=== PATIENT | male | born 1975 | race Caucasian/White ===

== ENCOUNTER 2017-02-27 09:09 | Inpatient (IN) | payer MEDICAID, OTHER ==
[~2017-02-27] VITALS: Ht 170.2 cm; Wt 79.4 kg
[~2017-02-27 09:09] MED LIST: BUSP10TA23 PO; GABA-533 PO; MIRT30 PO
[2017-02-27] MEDS ORDERED: ESCI20TA PO (09:13)
[2017-02-27 09:35] LABS: BASOPHILS % (AUTO) 0.2 % (0.0-2.0); EOSINOPHILS % (AUTO) 3.9 % (1.0-6.0); HEMOGLOBIN 15.1 g/dL (13.5-17.5); LYMPHOCYTES # (AUTO) 1.1 K/uL (1.0-4.8); LYMPHOCYTES % (AUTO) 16.2 % (22.0-44.0); MEAN CORPUSCULAR HEMOGLOBIN 30.4 pg (26.0-34.0); MEAN CORPUSCULAR HGB CONC 32.8 G/dL (31.0-37.0); MEAN CORPUSCULAR VOLUME 92 fL (80-100); MONOCYTES # (AUTO) 0.8 K/uL (0.1-1.0); MONOCYTES % (AUTO) 11.6 % (2.0-9.0); NEUTROPHILS # (AUTO) 4.4 K/uL (1.8-7.7); NEUTROPHILS % (AUTO) 68.1 % (40.0-70.0); PLATELET COUNT (AUTO) 281 K/uL (150-450); RED BLOOD CELL COUNT(AUTO) 4.98 MIL/uL (4.50-5.90); RED CELL DISTRIBUTION WIDTH 15.2 % (11.5-14.5); WHITE BLOOD COUNT (AUTO) 6.5 K/uL (4.5-11.0)
[2017-02-27 10:04] LABS: ANION GAP 11 mmol/L (8-16); CALCIUM, TOTAL 8.9 mg/dL (8.8-10.5); CARBON DIOXIDE 29 mmol/L (22-29); CHLORIDE 102 mmol/L (98-107); CREATININE 1.17 mg/dL (0.60-1.30); GLOMERULAR FILTR. RATE CALC > 60 mL/min (>60); POTASSIUM 4.1 mmol/L (3.5-5.1); SODIUM SERUM 142 mmol/L (136-145); UREA NITROGEN, BLOOD 11 mg/dL (7-18)
[2017-02-27 10:10] LABS: ALANINE AMINOTRANSFERASE 55 U/L (12-78); ALBUMIN 4.1 g/dL (3.4-5.0); ASPARTATE AMINOTRANSFERASE 37 U/L (15-37); BILIRUBIN,TOTAL 0.5 mg/dL (0.1-1.0); TOTAL PROTEIN, SERUM 7.8 g/dL (6.4-8.2)
[2017-02-27] MEDS: LORazepam 2 MG TABLET PO PRN ×2 (10:26→22:27)
[2017-02-27 12:00] VITALS: BP 144/83
[2017-02-27] MEDS: GABAPENTIN 400 MG CAPSULE PO SCH ×2 (13:07→17:34)
[2017-02-27 16:00] VITALS: BP 139/88
[2017-02-28] MEDS: LORazepam 2 MG TABLET PO PRN ×2 (06:21→11:47)
[2017-02-28 08:46] VITALS: BP 122/69
[2017-02-28] MEDS: GABAPENTIN 400 MG CAPSULE PO SCH ×3 (09:01→17:15)
[2017-02-28] MEDS: ESCITALOPRAM OXALATE 20 MG TABLET PO SCH (09:02)
[2017-02-28] MEDS: HALOPERIDOL 5 MG TABLET PO PRN (11:47)
[2017-02-28 16:14] VITALS: BP 133/87
[2017-03-01 06:10] VITALS: BP 144/85
[2017-03-01 08:16] VITALS: BP 139/80
[2017-03-01] MEDS: GABAPENTIN 400 MG CAPSULE PO SCH ×3 (09:49→16:36)
[2017-03-01] MEDS: ESCITALOPRAM OXALATE 20 MG TABLET PO SCH (09:49)
[2017-03-01 16:29] VITALS: BP 135/81
[2017-03-02 06:56] VITALS: BP 138/85
[2017-03-02] MEDS ORDERED: IBUPROFEN 600 MG TABLET PO PRN (08:00)
[2017-03-02] MEDS ORDERED: ACETAMINOPHEN 325 MG TABLET PO PRN (08:00)
[2017-03-02 08:11] VITALS: BP 150/98
[2017-03-02] MEDS: ESCITALOPRAM OXALATE 20 MG TABLET PO SCH (08:13)
[2017-03-02] MEDS: GABAPENTIN 400 MG CAPSULE PO SCH ×3 (08:13→16:00)
[2017-03-02 09:54] VITALS: BP 118/72
[2017-03-02] MEDS: LORazepam 2 MG TABLET PO PRN ×3 (10:51→20:08)
[2017-03-02 16:34] VITALS: BP 141/84
[2017-03-03 05:18] VITALS: BP 136/90
[2017-03-03] MEDS: LORazepam 2 MG TABLET PO PRN ×4 (05:18→18:28)
[2017-03-03 08:18] VITALS: BP 126/64
[2017-03-03] MEDS: ESCITALOPRAM OXALATE 20 MG TABLET PO SCH (09:18)
[2017-03-03] MEDS: GABAPENTIN 400 MG CAPSULE PO SCH ×3 (09:18→16:08)
[2017-03-03 16:30] VITALS: BP 144/88
[2017-03-03] MEDS: HALOPERIDOL 5 MG TABLET PO PRN (20:15)
[2017-03-03] MEDS: ZOLPIDEM TARTRATE 10 MG TABLET PO PRN (20:15)
[2017-03-04 07:02] VITALS: BP 149/91
[2017-03-04 08:06] VITALS: BP 135/76
[2017-03-04] MEDS: GABAPENTIN 400 MG CAPSULE PO SCH ×3 (08:50→16:20)
[2017-03-04] MEDS: ESCITALOPRAM OXALATE 20 MG TABLET PO SCH (08:51)
[2017-03-04] MEDS: LORazepam 2 MG TABLET PO PRN ×2 (11:49→17:25)
[2017-03-04 16:00] VITALS: BP 130/79
[2017-03-04] MEDS: NICOTINE POLACRILEX 4 MG LOZENGE PO PRN ×2 (18:24→20:34)
[2017-03-04] MEDS: ZOLPIDEM TARTRATE 10 MG TABLET PO PRN (20:33)
[2017-03-04] MEDS: HALOPERIDOL 5 MG TABLET PO PRN (20:33)
[2017-03-05 07:06] VITALS: BP 123/72
[2017-03-05] MEDS: LORazepam 2 MG TABLET PO PRN ×2 (07:26→16:10)
[2017-03-05 09:13] VITALS: BP 122/67
[2017-03-05] MEDS: ESCITALOPRAM OXALATE 20 MG TABLET PO SCH (09:20)
[2017-03-05] MEDS: GABAPENTIN 400 MG CAPSULE PO SCH ×3 (09:20→16:09)
[2017-03-05] MEDS: NICOTINE POLACRILEX 4 MG LOZENGE PO PRN ×3 (11:22→20:34)
[2017-03-05 16:00] VITALS: BP 130/73
[2017-03-05] MEDS: ZOLPIDEM TARTRATE 10 MG TABLET PO PRN (20:32)
[2017-03-06 00:15] VITALS: BP 122/70
[2017-03-06 08:25] VITALS: BP 133/83
[2017-03-06] MEDS: GABAPENTIN 400 MG CAPSULE PO SCH ×3 (08:57→16:19)
[2017-03-06] MEDS: LORazepam 2 MG TABLET PO PRN ×2 (08:57→19:33)
[2017-03-06] MEDS: ESCITALOPRAM OXALATE 20 MG TABLET PO SCH (08:58)
[2017-03-06 16:13] VITALS: BP_SYST 134; BP_DIAS 8; BP_DIAS 89
[2017-03-06] MEDS: NICOTINE POLACRILEX 4 MG LOZENGE PO PRN ×2 (16:59→20:58)
[2017-03-06] MEDS: ZOLPIDEM TARTRATE 10 MG TABLET PO PRN (20:57)
[2017-03-07 00:07] VITALS: BP 139/96
[2017-03-07] MEDS: HALOPERIDOL 5 MG TABLET PO PRN (00:07)
[2017-03-07] MEDS: GABAPENTIN 400 MG CAPSULE PO SCH ×2 (08:29→12:42)
[2017-03-07] MEDS: ESCITALOPRAM OXALATE 20 MG TABLET PO SCH (08:29)
[2017-03-07 08:42] VITALS: BP 102/51
[2017-03-07 08:47] VITALS: BP 142/84
[2017-03-07] MEDS: LORazepam 2 MG TABLET PO PRN (12:08)
== END 2017-03-07 16:07 | disposition home or self-care (01) | DRG 751 ==
LOC: EMS 09:10 → B3A 11:17 → B2S 03-04 10:57
DX: F33.2 Major depressive disorder, recurrent severe without psychotic features (principal); R45.851 Suicidal ideations; I10 Essential (primary) hypertension; F41.1 Generalized anxiety disorder; F17.210 Nicotine dependence, cigarettes, uncomplicated; F12.90 Cannabis use, unspecified, uncomplicated; R03.0 Elevated blood-pressure reading, without diagnosis of hypertension; K21.9 Gastro-esophageal reflux disease without esophagitis; K59.00 Constipation, unspecified; G47.00 Insomnia, unspecified; Z71.51 Drug abuse counseling and surveillance of drug abuser; Z71.6 Tobacco abuse counseling; Z91.5 Personal history of self-harm; Z79.899 Other long term (current) drug therapy
CPT/HCPCS: 99285; G0480

== ENCOUNTER 2017-05-15 18:22 | Inpatient (IN) | payer MEDICARE, MEDICAID ==
[~2017-05-15] VITALS: Ht 167.6 cm; Wt 77.2 kg
[~2017-05-15 18:22] MED LIST changes: -BUSP10TA23 PO; +ESCI20TA PO; -MIRT30 PO
[2017-05-15 19:17] LABS: BASOPHILS % (AUTO) 0.2 % (0.0-2.0); EOSINOPHILS % (AUTO) 3.8 % (1.0-6.0); HEMATOCRIT 43.5 % (41-53); HEMOGLOBIN 14.7 g/dL (13.5-17.5); LYMPHOCYTES # (AUTO) 1.2 K/uL (1.0-4.8); LYMPHOCYTES % (AUTO) 17.4 % (22.0-44.0); MEAN CORPUSCULAR HEMOGLOBIN 31.3 pg (26.0-34.0); MEAN CORPUSCULAR HGB CONC 33.8 G/dL (31.0-37.0); MEAN CORPUSCULAR VOLUME 93 fL (80-100); MONOCYTES # (AUTO) 0.8 K/uL (0.1-1.0); MONOCYTES % (AUTO) 10.8 % (2.0-9.0); NEUTROPHILS # (AUTO) 4.8 K/uL (1.8-7.7); NEUTROPHILS % (AUTO) 67.8 % (40.0-70.0); PLATELET COUNT (AUTO) 233 K/uL (150-450); RED CELL DISTRIBUTION WIDTH 14.1 % (11.5-14.5); WHITE BLOOD COUNT (AUTO) 7.1 K/uL (4.5-11.0)
[2017-05-15 19:55] LABS: ANION GAP 6 mmol/L (8-16); CALCIUM, TOTAL 8.9 mg/dL (8.8-10.5); CARBON DIOXIDE 29 mmol/L (22-29); CHLORIDE 105 mmol/L (98-107); CREATININE 1.22 mg/dL (0.60-1.30); GLOMERULAR FILTR. RATE CALC > 60 mL/min (>60); SODIUM SERUM 140 mmol/L (136-145); UREA NITROGEN, BLOOD 14 mg/dL (7-18)
[2017-05-15 20:01] LABS: ALANINE AMINOTRANSFERASE 38 U/L (12-78); ALBUMIN 3.8 g/dL (3.4-5.0); ASPARTATE AMINOTRANSFERASE 28 U/L (15-37); BILIRUBIN,TOTAL 0.4 mg/dL (0.1-1.0); TOTAL PROTEIN, SERUM 6.8 g/dL (6.4-8.2)
[2017-05-16 00:15] VITALS: BP 147/100
[2017-05-16 07:18] LABS: CHOL/HDL RATIO 4.3 (4.2-7.3)
[2017-05-16] MEDS: HALOPERIDOL 5 MG TABLET PO PRN (08:00)
[2017-05-16] MEDS: LORazepam 2 MG TABLET PO PRN (08:00)
[2017-05-16] MEDS ORDERED: BENZOCAINE/MENTHOL LOZENGE [8 LOZENGES/PACKET] MM PRN (10:30)
[2017-05-16] MEDS ORDERED: IBUPROFEN 600 MG TABLET PO PRN (10:30)
[2017-05-16] MEDS ORDERED: CloNIDine HCL 0.1 MG TABLET PO PRN (10:30)
[2017-05-16] MEDS ORDERED: BACITRACIN 28.4 GM OINTMENT TP PRN (10:30)
[2017-05-16] MEDS ORDERED: ONDANSETRON HCL 4 MG TABLET PO PRN (10:30)
[2017-05-16] MEDS ORDERED: ACETAMINOPHEN 325 MG TABLET PO PRN (10:30)
[2017-05-16] MEDS ORDERED: PETROLATUM,WHITE 71 GM JELLY TP PRN (10:30)
[2017-05-16] MEDS ORDERED: MAGNESIUM HYDROXIDE SUSPENSION 30 ML UDCUP PO PRN (10:30)
[2017-05-16] MEDS ORDERED: ALBUTEROL SULFATE HFA 90 MCG/PUFF 8 GM INHALER IH PRN (10:30)
[2017-05-16] MEDS ORDERED: LOPERAMIDE HCL 2 MG CAPSULE PO PRN (10:30)
[2017-05-16] MEDS ORDERED: MAG HYDROX/AL HYDROX/SIMETH ES 30 ML SUSPENSION UDCUP PO PRN (10:30)
[2017-05-16 13:28] VITALS: BP 148/91
[2017-05-16] MEDS: GABAPENTIN 400 MG CAPSULE PO SCH (17:29)
[2017-05-16 18:25] VITALS: BP 134/72
[2017-05-17 04:43] VITALS: BP 151/96
[2017-05-17] MEDS: NICOTINE POLACRILEX 4 MG LOZENGE PO PRN ×4 (06:25→20:42)
[2017-05-17 08:30] VITALS: BP 156/111
[2017-05-17] MEDS: ESCITALOPRAM OXALATE 20 MG TABLET PO SCH (09:14)
[2017-05-17] MEDS: FISH OIL/OMEGA-3 FATTY ACIDS 500 MG CAPSULE PO SCH (09:14)
[2017-05-17] MEDS: GABAPENTIN 400 MG CAPSULE PO SCH ×3 (09:14→16:21)
[2017-05-17] MEDS: LORazepam 2 MG TABLET PO PRN ×2 (09:19→20:11)
[2017-05-17] MEDS: DIVALPROEX SODIUM 500 MG DR TABLET PO SCH (16:21)
[2017-05-17 16:46] VITALS: BP 138/84
[2017-05-17] MEDS: ZOLPIDEM TARTRATE 10 MG TABLET PO PRN (22:03)
[2017-05-18] MEDS: NICOTINE POLACRILEX 4 MG LOZENGE PO PRN ×4 (06:07→18:49)
[2017-05-18] MEDS: DIVALPROEX SODIUM 500 MG DR TABLET PO SCH ×2 (09:01→16:07)
[2017-05-18] MEDS: ESCITALOPRAM OXALATE 20 MG TABLET PO SCH (09:02)
[2017-05-18] MEDS: GABAPENTIN 400 MG CAPSULE PO SCH ×3 (09:02→16:07)
[2017-05-18] MEDS: FISH OIL/OMEGA-3 FATTY ACIDS 500 MG CAPSULE PO SCH (09:02)
[2017-05-18 13:44] VITALS: BP 145/92
[2017-05-18 17:06] VITALS: BP 150/95
[2017-05-18] MEDS: LORazepam 2 MG TABLET PO PRN (19:17)
[2017-05-19] MEDS: LORazepam 2 MG TABLET PO PRN ×2 (07:36→19:10)
[2017-05-19] MEDS: GABAPENTIN 400 MG CAPSULE PO SCH ×3 (07:38→17:35)
[2017-05-19] MEDS: FISH OIL/OMEGA-3 FATTY ACIDS 500 MG CAPSULE PO SCH (07:38)
[2017-05-19] MEDS: DIVALPROEX SODIUM 500 MG DR TABLET PO SCH ×2 (07:38→17:35)
[2017-05-19] MEDS: ESCITALOPRAM OXALATE 20 MG TABLET PO SCH (07:38)
[2017-05-19 08:30] VITALS: BP 141/99
[2017-05-19] MEDS: NICOTINE POLACRILEX 4 MG LOZENGE PO PRN ×3 (09:20→21:55)
[2017-05-19 16:00] VITALS: BP 132/77
[2017-05-19] MEDS: ZOLPIDEM TARTRATE 10 MG TABLET PO PRN (20:56)
[2017-05-19] MEDS: HALOPERIDOL 5 MG TABLET PO PRN (22:36)
[2017-05-20 08:00] VITALS: BP 139/91
[2017-05-20] MEDS: DIVALPROEX SODIUM 500 MG DR TABLET PO SCH ×2 (09:09→16:04)
[2017-05-20] MEDS: GABAPENTIN 400 MG CAPSULE PO SCH ×3 (09:09→16:04)
[2017-05-20] MEDS: FISH OIL/OMEGA-3 FATTY ACIDS 500 MG CAPSULE PO SCH (09:10)
[2017-05-20] MEDS: ESCITALOPRAM OXALATE 20 MG TABLET PO SCH (09:10)
[2017-05-20] MEDS: NICOTINE POLACRILEX 4 MG LOZENGE PO PRN ×3 (09:10→18:17)
[2017-05-20 17:07] VITALS: BP 134/77
[2017-05-20] MEDS: LORazepam 2 MG TABLET PO PRN (17:09)
[2017-05-21] MEDS: NICOTINE POLACRILEX 4 MG LOZENGE PO PRN ×3 (06:24→19:17)
[2017-05-21 06:32] VITALS: BP 136/76
[2017-05-21 08:00] VITALS: BP 148/104
[2017-05-21] MEDS: FISH OIL/OMEGA-3 FATTY ACIDS 500 MG CAPSULE PO SCH (08:31)
[2017-05-21] MEDS: DIVALPROEX SODIUM 500 MG DR TABLET PO SCH ×2 (08:32→16:39)
[2017-05-21] MEDS: ESCITALOPRAM OXALATE 20 MG TABLET PO SCH (08:32)
[2017-05-21] MEDS: GABAPENTIN 400 MG CAPSULE PO SCH ×3 (08:32→16:39)
[2017-05-21] MEDS: LORazepam 2 MG TABLET PO PRN ×2 (14:33→19:03)
[2017-05-21 16:48] VITALS: BP 150/95
[2017-05-21] MEDS: ZOLPIDEM TARTRATE 10 MG TABLET PO PRN (20:19)
[2017-05-21] MEDS: HALOPERIDOL 5 MG TABLET PO PRN (21:36)
[2017-05-22 09:11] VITALS: BP 124/73
[2017-05-22] MEDS: FISH OIL/OMEGA-3 FATTY ACIDS 500 MG CAPSULE PO SCH (09:42)
[2017-05-22] MEDS: ESCITALOPRAM OXALATE 20 MG TABLET PO SCH (09:42)
[2017-05-22] MEDS: DIVALPROEX SODIUM 500 MG DR TABLET PO SCH ×2 (09:42→16:08)
[2017-05-22] MEDS: GABAPENTIN 400 MG CAPSULE PO SCH ×3 (09:43→16:08)
[2017-05-22] MEDS: NICOTINE POLACRILEX 4 MG LOZENGE PO PRN ×2 (14:05→19:41)
[2017-05-22 19:52] VITALS: BP 143/87
[2017-05-23] MEDS: NICOTINE POLACRILEX 4 MG LOZENGE PO PRN ×3 (06:42→16:45)
[2017-05-23 08:05] VITALS: BP 147/85
[2017-05-23] MEDS: GABAPENTIN 400 MG CAPSULE PO SCH ×3 (09:06→16:21)
[2017-05-23] MEDS: ESCITALOPRAM OXALATE 20 MG TABLET PO SCH (09:06)
[2017-05-23] MEDS: DIVALPROEX SODIUM 500 MG DR TABLET PO SCH ×2 (09:06→16:21)
[2017-05-23] MEDS: FISH OIL/OMEGA-3 FATTY ACIDS 500 MG CAPSULE PO SCH (09:07)
[2017-05-23] MEDS ORDERED: DIVA500T35 PO (16:43)
[2017-05-23 18:17] VITALS: BP 149/92
[2017-05-23] MEDS: LORazepam 2 MG TABLET PO PRN (20:24)
[2017-05-24] MEDS: NICOTINE POLACRILEX 4 MG LOZENGE PO PRN (06:42)
== END 2017-05-24 08:00 | disposition home or self-care (01) | DRG 885 ==
LOC: EMS 18:25 → 3EI 22:02
PROVIDERS: ADMIT Psychiatry & Neurology Psychiatry; ATTEND Psychiatry & Neurology Psychiatry
DX: F33.2 Major depressive disorder, recurrent severe without psychotic features (principal); R45.851 Suicidal ideations; F10.10 Alcohol abuse, uncomplicated; F12.10 Cannabis abuse, uncomplicated; E78.5 Hyperlipidemia, unspecified; G47.00 Insomnia, unspecified; I10 Essential (primary) hypertension; F41.9 Anxiety disorder, unspecified; Z72.0 Tobacco use; Z71.41 Alcohol abuse counseling and surveillance of alcoholic; Z71.51 Drug abuse counseling and surveillance of drug abuser; Z71.6 Tobacco abuse counseling; Z59.0 Homelessness
CPT/HCPCS: 99285; G0480

== ENCOUNTER 2018-11-10 13:16 | Emergency (ER) | payer MEDICARE, OTHER ==
[~2018-11-10] VITALS: Ht 170.2 cm; Wt 72.7 kg
[~2018-11-10 13:16] MED LIST changes: +AMLO-512 PO; -ESCI20TA PO; -GABA-533 PO; +HALO10 PO
[2018-11-10 14:17] LABS: BASOPHILS % (AUTO) 1.3 % (0.0-2.0); EOSINOPHILS % (AUTO) 11.4 % (1.0-6.0); HEMATOCRIT 49.3 % (41-53); HEMOGLOBIN 16.7 g/dL (13.5-17.5); LYMPHOCYTES # (AUTO) 2.6 K/uL (1.0-4.8); LYMPHOCYTES % (AUTO) 33.1 % (22.0-44.0); MEAN CORPUSCULAR HEMOGLOBIN 31.5 pg (26.0-34.0); MEAN CORPUSCULAR HGB CONC 33.8 G/dL (31.0-37.0); MEAN CORPUSCULAR VOLUME 93 fL (80-100); MONOCYTES # (AUTO) 0.8 K/uL (0.1-1.0); MONOCYTES % (AUTO) 10.6 % (2.0-9.0); NEUTROPHILS # (AUTO) 3.4 K/uL (1.8-7.7); NEUTROPHILS % (AUTO) 43.6 % (40.0-70.0); PLATELET COUNT (AUTO) 290 K/uL (150-450); RED BLOOD CELL COUNT(AUTO) 5.29 MIL/uL (4.50-5.90); RED CELL DISTRIBUTION WIDTH 15.2 % (11.5-14.5)
[2018-11-10 14:28] LABS: ANION GAP 9 mmol/L (8-16); CALCIUM, TOTAL 9.4 mg/dL (8.8-10.5); CARBON DIOXIDE 30 mmol/L (22-29); CHLORIDE 107 mmol/L (98-107); CREATININE 0.95 mg/dL (0.60-1.30); GLOMERULAR FILTR. RATE CALC > 60 mL/min (>60); GLUCOSE,RANDOM 95 mg/dL (70-110); POTASSIUM 4.4 mmol/L (3.5-5.1); SODIUM SERUM 146 mmol/L (136-145); UREA NITROGEN, BLOOD 16 mg/dL (7-18)
[2018-11-10 14:34] LABS: ALANINE AMINOTRANSFERASE 46 U/L (12-78); ALBUMIN 4.1 g/dL (3.4-5.0); ALKALINE PHOSPHATASE 92 U/L (46-116); ASPARTATE AMINOTRANSFERASE 34 U/L (15-37); BILIRUBIN,TOTAL 0.2 mg/dL (0.1-1.0)
[2018-11-10 15:02] LABS: AMPHET/METH SCREEN,URINE NEGATIVE (NEGATIVE); BARBITURATE SCREEN, URINE NEGATIVE (NEGATIVE); BENZODIAZEPINES SCREEN,URINE NEGATIVE (NEGATIVE); CANNABINOID SCREEN,URINE POSITIVE (NEGATIVE); COCAINE SCREEN,URINE NEGATIVE (NEGATIVE); METHADONE SCREEN, URINE NEGATIVE (NEGATIVE); OPIATE SCREEN,URINE NEGATIVE (NEGATIVE)
[2018-11-10 15:08] LABS: PHENCYCLIDINE SCREEN,URINE NEGATIVE (NEGATIVE)
[2018-11-10 17:32] VITALS: BP 140/98
== END 2018-11-10 18:22 | disposition home or self-care (01) ==
LOC: EMS 13:17
DX: R45.851 Suicidal ideations (principal); F10.10 Alcohol abuse, uncomplicated; F41.9 Anxiety disorder, unspecified; F32.9 Major depressive disorder, single episode, unspecified; I10 Essential (primary) hypertension; F17.210 Nicotine dependence, cigarettes, uncomplicated; Z88.8 Allergy status to other drugs, medicaments and biological substances; Y90.7 Blood alcohol level of 200-239 mg/100 ml
CPT/HCPCS: 36415; 80053; 80307; 85025; 99285; G0480